=== PATIENT | male | born 1985 | race Caucasian/White ===

== ENCOUNTER 2017-06-30 07:24 | Emergency (ER) | payer BC ==
[2017-06-30] MEDS ORDERED: ASPIRIN 81 MG CHEWABLE TABLET ONE (07:55)
--- NOTE | 2017-06-30 08:20 | RAD REPORT ---
EXAM DESCRIPTION: CT - Head Brain Wo Cont - 06/30/2017 8:14 am CLINICAL HISTORY: Visual disturbance, headache. COMPARISON: 12/11/2013 TECHNIQUE: All CT scans are performed using dose optimization technique as appropriate and may inclu de automated exposure control or mA/KV adjustment according to patient size. FINDINGS: No intracranial hemorrhage, hydrocephalus or extra-axial fluid collection.No areas of brai n edema or evidence of midline shift. The paranasal sinuses and mastoids are clear. The calvarium is intact. IMPRESSION: No acute intracranial abnormality.
[2017-06-30 08:25] LABS: Protime INR 0.99
[2017-06-30 08:29] LABS: Absolute Lymphocytes (CBC) 1.6 K/uL (0.7-4.9); Absolute Monocytes 0.4 K/uL (0.1-1.3); Absolute Neutrophil 3.2 K/uL (1.8-8.0); Basophils % 0.7 % (0-1.3); Eosinophils % 4.4 % (0-4.4); Hematocrit 40.7 % (39.6-49.0); Lymphocytes % 29.7 % (15.3-44.8); MCH 30.3 pg (27.0-35.0); MCV 86.7 fL (80-100); MPV 9.5 fL (7.6-11.3); Monocytes % 6.7 % (3.3-12.3); RBC Red Blood Cell Count 4.69 M/uL (4.33-5.43)
[2017-06-30 08:35] LABS: Bicarbonate 28 mEq/L (21-31); Glucose Level 107 mg/dL (65-120); Potassium 3.8 mEq/L (3.6-5.0); Sodium Level 137 mEq/L (135-145)
[2017-06-30 08:40] LABS: ALT/SGPT 21 IU/L (10-60); AST/SGOT 16 IU/L (10-42); Albumin 4.5 g/dL (3.2-5.5); Alkaline Phosphatase 38 IU/L (42-121); BUN Blood Urea Nitrogen 21 mg/dL (6-20); Bilirubin Direct < 0.1 mg/dL (0-0.2); Bilirubin Total 0.5 mg/dL (0.3-1.2); Glomerular Filtration Rate 68 mL/min (=/>90); Magnesium 1.9 mg/dL (1.8-2.5); Protein, Total 7.4 g/dL (6.0-8.3)
--- NOTE | 2017-06-30 09:52 | EKG ---
Test Date: 2017-06-30 Test Time: 09:16:15 Ict Development Manager: KRISTINE MEASUREMENT RESULTS: Intervals: Rate: 62 GA: 154 QRSD: 78 QT: 364 QTc: 369 [place]: P: 24 GA: 154 QRS: 2 T: 18 INTERPRETIVE STATEMENTS: Normal sinus rhythm Moderate voltage criteria for LVH, may be normal variant Early repolarization Borderline ECG No previous ECG available for comparison Electronically Signed On 06-30-17 09:51:50 CDT by Jarret Mclaughlin
--- NOTE | 2017-06-30 09:58 | ER ---
Nurse's Notes [facility] Name: Daniel Romero Age: 32 yrs Sex: Male : 1985 Arrival Date: 06/30/2017 Time: 07:26 Bed 8 Private MD: Diagnosis: acute blurry vision Presentation: 06/30 07:22 Presenting complaint: EMS states: woke up this morning around 0230 with blurred vision sv bilaterally. Pt drove from [place] to work in [place] and then went to the EMS station. Pt stated that his vision in his left eye has improved. BS-102 Bp 135/79 HR 90 98% RA. Pt wears glasses all the time. Pt denies double vision or COYLE at this time. Transition of care: patient was not received from another setting of care. Onset of symptoms was June 30, 2017 at 02:30. Care prior to arrival: IV initiated. 20 GA, in the left antecubital area. 07:22 Method Of Arrival: EMS: [facility] sv 07:22 Acuity: JULIETA 3 sv Triage Assessment: 07:25 General: Appears in no apparent distress. comfortable, well developed, Behavior is sv calm, cooperative, appropriate for age. Pain: Denies pain. EENT: Reports blurred vision in right eye and left eye left eye has improved since this morning Denies photophobia. Neuro: Level of Consciousness is awake, alert, obeys commands, Oriented to person, place, time, situation, Moves all extremities. Full function Gait is steady, Denies headache photophobia diplopia. Respiratory: Respiratory effort is even, unlabored, Respiratory pattern is regular, symmetrical. Derm: Skin is normal. Musculoskeletal: Range of motion: intact in all extremities. Historical: - Allergies: 07:29 NKDA; sv - Home Meds: 07:29 None [Active]; sv - PMHx: 07:29 None; sv - PSHx: 07:29 None; sv - Immunization history:: Adult Immunizations up to date. - Social history:: Patient uses dips tobacco, The patient lives with family, No barriers to communication noted, Smoking status: unknown. - Family history:: pertinent for mother and grandpa with similar symptoms in their history. - Hospitalizations: : No recent hospitalization is reported. Screenin:00 Abuse screen: Denies threats or abuse. Denies injuries from another. Nutritional sv screening: No deficits noted. Tuberculosis screening: No symptoms or risk factors identified. Fall Risk None identified. Assessment: 08:00 Reassessment: See triage assessment. sv 09:36 Reassessment: Patient appears in no apparent distress at this time. No changes from sv previously documented assessment. Patient and/or family updated on plan of care and expected duration. Pain level reassessed. Patient is alert, oriented x 3, equal unlabored respirations, skin warm/dry/pink. 10:15 Reassessment: Patient appears in no apparent distress at this time. No changes from sv previously documented assessment. Patient and/or family updated on plan of care and expected duration. Pain level reassessed. Patient is alert, oriented x 3, equal unlabored respirations, skin warm/dry/pink. Vital Signs: 07:29 BP 139 / 90; Pulse 76; Resp 18; Temp 98.5; Pulse Ox 99% ; Weight 90.72 kg; Height 6 ft. sv 0 in. (182.88 cm); Pain 0/10; 08:10 BP 127 / 67; Pulse 84; Resp 18; Pulse Ox 96% ; sv 09:34 BP 118 / 84; Pulse 83; Resp 18; Pulse Ox 99% ; sv 07:29 Body Mass Index 27.12 (90.72 kg, 182.88 cm) sv ED Course: 07:22 Maintain EMS IV. Dressing intact. Good blood return noted. Site clean \T\ dry. Gauge \T\ sv site: 20G R AC. 07:25 Arm band placed on right wrist. sv 07:26 Patient arrived in ED. sv 07:26 Kaylee Mcdaniel, RN is Primary Nurse. sv 07:28 Triage completed. sv 07:29 Uriah Martin MD is Attending Physician. wa 08:00 Initial lab(s) drawn, by nh, sent to lab. sv 08:00 Patient has correct armband on for positive identification. Bed in low position. Call sv light in reach. Side rails up X2. Pulse ox on. NIBP on. Door closed. Head of bed elevated. 08:14 Head Brain Wo Cont CT In Process Unspecified. EDMS 09:56 EKG done, by ict support technicians. reviewed by Uriah Martin MD. tc 09:57 Hans Jackson MD is Referral Physician. wa 10:15 No provider procedures requiring assistance completed. IV discontinued, intact, sv bleeding controlled, No redness/swelling at site. Pressure dressing applied. Administered Medications: 08:05 Drug: Aspirin Chewable Tablet 324 mg Route: PO; sv 08:22 Follow up: Response: No adverse reaction sv Outcome: 09:57 Discharge ordered by . wa 10:15 Discharged to home ambulatory, Pt waiting in ER [facility] for his ride home. sv 10:15 Condition: stable 10:15 Discharge instructions given to patient, Instructed on discharge instructions, follow up and referral plans. Demonstrated understanding of instructions, follow-up care. 10:17 Patient left the ED. Signatures: Dispatcher [employer] Kaylee Sanchez RN RN sv Smirch, Shelby, RN RN Mee Waite, respiratory support technician EKG Ttc MarioUriah MD MD nj
--- NOTE | 2017-06-30 09:58 | EDPHYS ---
Physician Documentation [facility] Name: Daniel Romero Age: 32 yrs Sex: Male : 1985 Arrival Date: 06/30/2017 Time: 07:26 Bed 8 Private MD: ED Physician Uriah Martin HPI: 06/30 08:21 This 32 yrs old Male presents to ER via EMS with complaints of Blurred Vision.wa 08:21 The patient's problem is reported as c/o bilateral blurry vision. awoke with blurry wa vision. on-going x 3 hours. L side improved. R still blurry. denies COYLE, nausea, vomiting, numbness or difficulty with gait. 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 came in because symptoms didn't resolve while on his way to work. h/o occasional (every 8 months or so) sudden onset blurry vision assoc with L facial and upper extremity numbness. states usually with develop and severe COYLE immediately afterwards. COYLE usually resolves after going to sleep. these symptoms have been on-going x 5 yrs. mother and grandpa tells him they have same. has not seen a doc for it. denies assoc COYLE or numbness today. Onset: The symptoms/episode began/occurred 3 hour(s) ago, when she woke up. Duration: This was a single incident, continuous but improving. L eye resolved. R eye improved but still present. Context: as noted in HPI above. The symptoms are alleviated by nothing. The symptoms are aggravated by nothing. Associated signs and symptoms: The patient has no apparent associated signs or symptoms. Severity of symptoms: At their worst the symptoms were moderate in the emergency department the symptoms have improved moderately. Patient's baseline: Neuro: alert and fully oriented, Motor: no deficits, Ambulation: walks without assistance, Speech: normal. see HPI above. The patient has not recently seen a physician. Historical: - Allergies: 07:29 NKDA; sv - Home Meds: :29 None [Active]; sv - PMHx: 07:29 None; sv - PSHx: 07:29 None; sv - Immunization history:: Adult Immunizations up to date. - Social history:: Patient uses dips tobacco, The patient lives with family, No barriers to communication noted, Smoking status: unknown. - Family history:: pertinent for mother and grandpa with similar symptoms in their history. - Hospitalizations: : No recent hospitalization is reported. ROS: 08:30 Constitutional: Negative for fever, chills, and weight loss, Eyes: Negative for injury, wa pain, redness, and discharge, ENT: Negative for injury, pain, and discharge, Neck: Negative for injury, pain, and swelling, Cardiovascular: Negative for chest pain, palpitations, and edema, Respiratory: Negative for shortness of breath, cough, wheezing, and pleuritic chest pain, Abdomen/GI: Negative for abdominal pain, nausea, vomiting, diarrhea, and constipation, Back: Negative for injury and pain, : Negative for injury, bleeding, discharge, and swelling, MS/Extremity: Negative for injury and deformity, Skin: Negative for injury, rash, and discoloration. 08:30 Eyes: Positive for blurry vision, Negative for vision loss. 08:30 Neuro: Positive for visual changes. 08:30 All other systems are negative. Exam: 08:30 Constitutional: This is a well developed, well nourished patient who is awake, alert, wa and in no acute distress. Head/Face: Normocephalic, atraumatic. ENT: Nares patent. No nasal discharge, no septal abnormalities noted. Tympanic membranes are normal and external auditory canals are clear. Oropharynx with no redness, swelling, or masses, exudates, or evidence of obstruction, uvula midline. Mucous membranes moist. Neck: Trachea midline, no thyromegaly or masses palpated, and no cervical lymphadenopathy. Supple, full range of motion without nuchal rigidity, or vertebral point tenderness. No Meningismus. Cardiovascular: Regular rate and rhythm with a normal S1 and S2. No gallops, murmurs, or rubs. Normal PMI, no JVD. No pulse deficits. Respiratory: Lungs have equal breath sounds bilaterally, clear to auscultation and percussion. No rales, rhonchi or wheezes noted. No increased work of breathing, no retractions or nasal flaring. Abdomen/GI: Soft, non-tender, with normal bowel sounds. No distension or tympany. No guarding or rebound. No evidence of tenderness throughout. Back: No spinal tenderness. No costovertebral tenderness. Full range of motion. Skin: Warm, dry with normal turgor. Normal color with no rashes, no lesions, and no evidence of cellulitis. MS/ Extremity: Pulses equal, no cyanosis. Neurovascular intact. Full, normal range of motion. Psych: Awake, alert, with orientation to person, place and time. Behavior, mood, and affect are within normal limits. 08:30 Eyes: Pupils: no acute changes, equal, round, and reactive to light and accomodation, Extraocular movements: no acute changes, Conjunctiva: normal, Corneas: are normal, Sclera: no appreciated abnormality, Anterior chamber: normal. 08:30 Neuro: Orientation: is normal, Mentation: is normal, Memory: is normal, Cranial nerves: grossly normal, Cerebellar function: is grossly normal, Motor: is normal, Gait: is steady. Vital Signs: 07:29 BP 139 / 90; Pulse 76; Resp 18; Temp 98.5; Pulse Ox 99% ; Weight 90.72 kg; Height 6 ft. sv 0 in. (182.88 cm); Pain 0/10; 08:10 BP 127 / 67; Pulse 84; Resp 18; Pulse Ox 96% ; sv 09:34 BP 118 / 84; Pulse 83; Resp 18; Pulse Ox 99% ; sv 07:29 Body Mass Index 27.12 (90.72 kg, 182.88 cm) sv MDM: 07:29 Patient medically screened. wa 08:32 Differential diagnosis: CVA, TIA, suspect atypical migraine. consider CV. consider MS. wa will monitor. will check head CT. ASA p.o. Will need neurology f/u if work up neg in ED and symptoms resolve. 09:52 Data reviewed: vital signs, nurses notes, lab test result(s), EKG. Test interpretation: wa by ED physician or midlevel provider: EKG: HR 62. noted Early repolarization. not concerning dysrhythmic changes. Test interpretation: by ED physician or midlevel provider: labs wnl. Head CT. Response to treatment: the patient's symptoms have markedly improved after treatment. Special discussion: markedly improved. will have f/u closely with neurology for further evaluation with MRI. advised immediate return for rapidly worsening concerns. 06/30 07:50 Order name: Basic Metabolic Panel; Complete Time: 09:49 wi 06/30 07:50 Order name: CBC with Diff; Complete Time: :49 wi 06/30 07:50 Order name: LFT's; Complete Time: 09:49 06/30 07:50 Order name: Magnesium; Complete Time: 09:49 06/30 07:50 Order name: PT-INR; Complete Time: 09:06/30 07:50 Order name: Head Brain Wo Cont CT; Complete Time: 08:33 06/30 07:50 Order name: EKG; Complete Time: 07:50 06/30 07:50 Order name: Cardiac monitoring; Complete Time: 10:06/30 07:50 Order name: EKG - Nurse/Tech; Complete Time: 10:06/30 07:50 Order name: IV Saline Lock; Complete Time: 08:06/30 07:50 Order name: Labs collected and sent; Complete Time: 08:06/30 07:50 Order name: O2 Sat Monitoring; Complete Time: 08: wi Administered Medications: 08:05 Drug: Aspirin Chewable Tablet 324 mg Route: PO; sv 08:22 Follow up: Response: No adverse reaction sv Disposition: 06/30/17 09:57 Discharged to Home. Impression: acute blurry vision. - Condition is Stable. - Discharge Instructions: Eye - Blurred Vision. - Medication Reconciliation Form, Thank You Letter, Antibiotic Education, Prescription Opioid Use form. - Follow up: Hans Jackson MD; When: 1 - 2 days; Reason: Further diagnostic work-up. - Problem is new. - Symptoms have improved. - Notes: see the neurologist for furhter evaluation as discussed. return here immediately for rapidly worsenign concerns and or new symptoms such as severe headache, vomiting, dizziness, problems with gait or difficultywith speech. Signatures: Dispatcher [employer] Kaylee Sanchez, RN RN Raina Prasad RN RN Uriah Martin MD MD wi
== END 2017-06-30 10:17 | disposition home or self-care (01) ==
LOC: ER 07:24
DX: H53.8 Other visual disturbances (principal); Z72.0 Tobacco use
CPT/HCPCS: 36415; 70450; 80048; 80076; 83735; 85025; 85610; 93005; 99284